=== PATIENT | female | born 1995 | race Hispanic/Latino ===

== ENCOUNTER 2023-05-21 03:56 | Day surgery (SDC) | payer BC, OTHER ==
[2023-05-21 04:18] VITALS: BMI 30.8
[2023-05-21] MEDS ORDERED: hydrALAZINE 20 MG/ML VIAL SLOW IVP PRN ×2 (04:37→18:46)
[2023-05-21] MEDS ORDERED: Promethazine HCl 25 MG/ML VIAL IM PRN (18:46)
[2023-05-21] MEDS ORDERED: Ondansetron PF 4 MG/2 ML Vial IVP PRN (18:46)
[2023-05-21] MEDS ORDERED: Lidocaine 1% (PF) 30 ML VIAL SC PRN (18:46)
[2023-05-21] MEDS ORDERED: NS w/ Oxytocin 30 units 500 ML IV SCH (19:00)
== END 2023-05-21 06:30 | disposition home or self-care (01) ==
LOC: CSHLD/OP 03:56
PROVIDERS: ATTEND Obstetrics & Gynecology
DX: O47.1 False labor at or after 37 completed weeks of gestation (principal); Z3A.39 39 weeks gestation of pregnancy
CPT/HCPCS: 36415; 85027; 86780; 86850; 86900; 86901; 87340; 99283

== ENCOUNTER 2023-05-21 17:50 | Inpatient (IN) | payer BC, OTHER ==
[2023-05-21 19:16] VITALS: BMI 30.8
[2023-05-21 19:17] LABS: Hemoglobin 10.4 g/dL (12.0-15.5); Mean Corpuscular HGB CONC 31.6 g/dL (32.0-36.0); Mean Corpuscular Volume 75.8 fl (81.6-98.3); Mean Platelet Volume 10.5 fl (7.4-10.4); Platelet Count 358 10x3/uL (150-450); RBC Distribution Width 15.5 % (11.5-14.5); Red Blood Cell (RBC) Count 4.34 10x6/uL (3.90-5.03); White Blood Cell (WBC) Count 15.8 10x3/uL (3.5-10.5)
[2023-05-21 19:44] LABS: HBSAg Index 0.16 S/CO (0-0.99); Hep B Surf Ag - L&D Non-Reactive S/CO (NonReactive)
[2023-05-21 19:45] LABS: Syphilis Antibody Nonreactive (Nonreactive)
[2023-05-21] MEDS ORDERED: hydrALAZINE 20 MG/ML VIAL SLOW IVP PRN (20:17)
[2023-05-21] MEDS ORDERED: Ondansetron PF 4 MG/2 ML Vial IVP PRN (20:17)
[2023-05-21] MEDS ORDERED: Promethazine HCl 25 MG/ML VIAL IM PRN (20:17)
[2023-05-21] MEDS ORDERED: Lidocaine 1% (PF) 30 ML VIAL SC PRN (20:17)
[2023-05-21] MEDS ORDERED: NS w/ Oxytocin 30 units 500 ML IV SCH (20:30)
[2023-05-22] MEDS: fentaNYL 50 mcg/mL 1 mL Vial SLOW IVP PRN ×2 (00:59→02:05)
[2023-05-22] MEDS ORDERED: Ibuprofen 800 MG TAB PO SCH (11:00)
[2023-05-22] MEDS ORDERED: Benzocaine-Menthol 82.5 ML CAN TOP PRN (12:10)
[2023-05-22] MEDS ORDERED: Preparation H Ointment 28 GM TUBE PR PRN (12:10)
[2023-05-22] MEDS ORDERED: Lanolin Ointment 7 GM TUBE TOP PRN (12:10)
[2023-05-22] MEDS ORDERED: Varicella virus, LIVE 0.5 ML VIAL SC ONE (12:10)
[2023-05-22] MEDS ORDERED: diphenhydrAMINE 25 MG CAP PO PRN (12:10)
[2023-05-22] MEDS ORDERED: Bisacodyl 10 MG SUPP PR PRN (12:10)
[2023-05-22] MEDS ORDERED: Ondansetron PF 4 MG/2 ML Vial IVP PRN (12:10)
[2023-05-22] MEDS ORDERED: hydrALAZINE 20 MG/ML VIAL SLOW IVP PRN (12:10)
[2023-05-22] MEDS ORDERED: Measles/Mumps/Rubella 10 MCG/0.5 ML VIAL SC ONE (12:10)
[2023-05-22] MEDS ORDERED: Boostrix 0.5 ML (Tdap) VIAL (>/=7 yrs of age) IM ONE (12:10)
[2023-05-22] MEDS ORDERED: Milk Of Magnesia 30 ML UDCUP PO PRN (12:10)
[2023-05-22] MEDS ORDERED: Promethazine HCl 25 MG/ML VIAL IM PRN (12:10)
[2023-05-22] MEDS ORDERED: Misoprostol 200 MCG TAB VAG PRN (12:10)
[2023-05-22] MEDS ORDERED: Methylergonovine 0.2 MG/ML VIAL IM PRN (12:10)
[2023-05-22] MEDS ORDERED: Zolpidem Tartrate 5 MG TAB PO PRN (12:10)
[2023-05-22] MEDS ORDERED: NS w/ Oxytocin 30 units 500 ML IV SCH (12:10)
[2023-05-22] MEDS ORDERED: HYDROcodone/Acetaminophen 5/325 mg Tablet PO PRN ×2 (12:10)
[2023-05-22] MEDS: Ibuprofen 800 MG TAB PO SCH ×2 (18:08→21:23)
[2023-05-22] MEDS: Ferrous Sulfate 325 MG TAB PO SCH (18:08)
[2023-05-22] MEDS: Docusate 100 MG CAP PO SCH (21:24)
[2023-05-23 05:01] LABS: Hemoglobin 9.5 g/dL (12.0-15.5); Mean Corpuscular HGB CONC 30.8 g/dL (32.0-36.0); Mean Corpuscular Hemoglobin 23.8 pg (27.0-33.0); Mean Platelet Volume 10.5 fl (7.4-10.4); Platelet Count 313 10x3/uL (150-450); RBC Distribution Width 15.8 % (11.5-14.5); White Blood Cell (WBC) Count 19.5 10x3/uL (3.5-10.5)
[2023-05-23] MEDS: Ibuprofen 800 MG TAB PO SCH ×3 (06:08→21:47)
[2023-05-23] MEDS: Prenatal Vitamin 1 TAB PO SCH (15:02)
[2023-05-23] MEDS: Docusate 100 MG CAP PO SCH ×2 (15:02→21:47)
[2023-05-23] MEDS: Ferrous Sulfate 325 MG TAB PO SCH (15:03)
[2023-05-24] MEDS: Ibuprofen 800 MG TAB PO SCH (06:18)
[2023-05-24] MEDS: Ferrous Sulfate 325 MG TAB PO SCH ×2 (07:19→08:30)
[2023-05-24 08:30] VITALS: BP 103/71; TEMP 97.9
[2023-05-24] MEDS: Prenatal Vitamin 1 TAB PO SCH (08:30)
[2023-05-24] MEDS: Docusate 100 MG CAP PO SCH (08:30)
== END 2023-05-24 11:40 | disposition home or self-care (01) | DRG 807 ==
LOC: CSHLD/OP 17:50 → CSHLD 20:09 → CSHPP 05-22 11:25
PROVIDERS: ADMIT Obstetrics & Gynecology; ATTEND Obstetrics & Gynecology
PROC: 10E0XZZ Delivery of Products of Conception, External Approach (ICD-10-PCS; principal; 2023-05-22)
DX: O80 Encounter for full-term uncomplicated delivery (principal); Z37.0 Single live birth; Z3A.38 38 weeks gestation of pregnancy; Z88.0 Allergy status to penicillin
CPT/HCPCS: 36415; 85027; 86780; 86850; 86900; 86901; 87340; 99283; 99285; J2590; J3010